=== PATIENT | male | born 1940 | race Caucasian/White ===

== ENCOUNTER → 2018-03-16 | Outpatient (CLI) | payer MEDICARE, BC | END | disposition home or self-care (01) | LOC: PCVCCLINIC 12:53 | PROVIDERS: ATTEND Internal Medicine | DX: I13.0 Hypertensive heart and chronic kidney disease with heart failure and stage 1 through stage 4 chronic kidney disease, or unspecified chronic kidney disease (principal); N18.4 Chronic kidney disease, stage 4 (severe); I50.9 Heart failure, unspecified; I48.0 Paroxysmal atrial fibrillation; J43.8 Other emphysema; R07.9 Chest pain, unspecified; C91.10 Chronic lymphocytic leukemia of B-cell type not having achieved remission; E78.5 Hyperlipidemia, unspecified; Z95.0 Presence of cardiac pacemaker; Z88.8 Allergy status to other drugs, medicaments and biological substances; Z87.891 Personal history of nicotine dependence; Z79.899 Other long term (current) drug therapy | CPT/HCPCS: 80061; G0463 ==

== ENCOUNTER → 2018-03-23 | Outpatient (CLI) | payer MEDICARE, BC ==
--- NOTE | 2018-03-24 07:46 | PCVCIMAG ---
APPROVED REPORT Study performed: 03/23/2018 14:36:41 EXAM: Comprehensive 2D, Doppler, and color-flow Echocardiogram Patient Location: Echo lab Status: routine BSA: 2.10 HR: 60 bpmBP: 110/70 mmHg Rhythm: NSR Other Information Study Quality: Technically Limited Risk Factors: Cardiac Risk Factors: HTN, Hyperlipidemia Indications Atrial Fibrillation Pacemaker Emphysema, CLL, Renal Disease 2D Dimensions IVSd: 16.61 (7-11mm)LVOT Diam: 25.17 (18-24mm) LVDd: 37.64 mm PWd: 14.80 (7-11mm)Ascending Ao: 39.71 (22-36mm) LVDs: 35.59 (25-40mm) Left Atrium: 34.38 (27-40mm) Aortic Root: 29.98 mm LV Single Plane 4CH: 69.20 % LV Single Plane 2CH: 56.68 % Biplane EF: 63.5 % Volumes Left Atrial Volume (Systole) Single Plane 4CH: 68.44 mLSingle Plane 2CH: 112.42 mL LA ESV Index: 40.00 mL/m2 Aortic Valve AoV Peak Xavier.: 1.80 m/s AO Peak Gr.: 12.95 mmHgLVOT Max P.42 mmHg AO Mean Gr.: 6.01 mmHgLVOT Mean P.70 mmHg AO V2 Mean: 1.13 m/sLVOT Max V: 1.16 m/s AO V2 VTI: 37.11 cm ANTON (VTI): 3.73 [id number] V1 VTI: 27.80 cm ANTON Vmax: 3.22 cm2 Mitral Valve E/A Ratio: 0.7 MV Decel. Time: 444.63 ms MV E Max Xavier.: 1.10 m/s MV A Xavier.: 1.61 m/s MV VTI: 433.87 mm MVA VTI: 318.68 mm2 MV PHT: 128.94 ms MVA (PHT): 2.17 cm2 Tricuspid Valve TR Peak Xavier.: 3.27 m/s TR Peak Gr.: 42.78 mmHg Left Ventricle The left ventricle is normal size. There is normal LV segmental wall motion. There is normal left ventricular wall thickness. Left ventricular systolic function is normal. The left ventricular ejection fraction is within the normal range. LVEF is >55%. The left ventricular diastolic function is normal. Right Ventricle The right ventricle is normal size. The right ventricular systolic function is normal. Pacemaker lead is present in the right ventricle. Atria The left atrium size is normal. The right atrium size is normal. Aortic Valve The aortic valve is normal in structure. Trace aortic regurgitation. There is no aortic valvular stenosis. Mitral Valve Mild mitral annular calcification. There is no mitral valve regurgitation noted. No evidence of mitral valve stenosis. Tricuspid Valve The tricuspid valve is normal in structure. Trace to mild tricuspid regurgitation. Pulmonary artery pressure is 50mmHg. Pulmonic Valve The pulmonary valve is normal in structure. There is no pulmonic valvular regurgitation. Great Vessels The aortic root is normal in size. 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 IVC is normal in size and collapses >50% with inspiration. Pericardium There is no pericardial effusion. <Conclusion> The left ventricle is normal size. LVEF is >55%. Pacemaker lead is present in the right ventricle. The aortic valve is normal in structure. Trace aortic regurgitation. Mild mitral annular calcification. The tricuspid valve is normal in structure. Trace to mild tricuspid regurgitation. Pulmonary artery pressure is 50mmHg. There is no pericardial effusion. The aortic root is normal in size. 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
== END | disposition home or self-care (01) ==
LOC: PCVCIMAG 15:43
PROVIDERS: ATTEND Internal Medicine
DX: I48.91 Unspecified atrial fibrillation (principal); J43.9 Emphysema, unspecified; N28.9 Disorder of kidney and ureter, unspecified; I05.8 Other rheumatic mitral valve diseases
CPT/HCPCS: 93306

== ENCOUNTER → 2018-09-20 | Outpatient (CLI) | payer MEDICARE, BC | END | disposition home or self-care (01) | LOC: PCVCCLINIC 11:00 | PROVIDERS: ATTEND Internal Medicine | DX: R07.9 Chest pain, unspecified (principal); I50.33 Acute on chronic diastolic (congestive) heart failure; N18.4 Chronic kidney disease, stage 4 (severe); I48.0 Paroxysmal atrial fibrillation; C91.90 Lymphoid leukemia, unspecified not having achieved remission; E78.5 Hyperlipidemia, unspecified; J43.9 Emphysema, unspecified; R94.31 Abnormal electrocardiogram [ECG] [EKG]; Z95.0 Presence of cardiac pacemaker; Z88.8 Allergy status to other drugs, medicaments and biological substances; Z87.891 Personal history of nicotine dependence; Z79.899 Other long term (current) drug therapy | CPT/HCPCS: 80061; 93005; 93280; G0463 ==